=== PATIENT | male | born 1945 | race Caucasian/White ===

== ENCOUNTER 2017-01-09 14:07 | Emergency (ER) | payer MEDICARE, OTHER ==
[2017-01-09 14:43] VITALS: BP 142/77
[2017-01-09] MEDS ORDERED: Tetan/Diph/Pertus SYR(Tdap)* 0.5 ML SYR(BOOSTRIX) use SYR IM ONE (15:27)
[2017-01-09] MEDS ORDERED: Lidocaine 1% MPF* 2 ML VIAL ONE (15:27)
[2017-01-09] MEDS ORDERED: Lidocaine 1% MPF* 2 ML VIAL INJ ONE (15:27)
--- NOTE | 2017-01-09 16:13 | UC ---
Laceration HPI - HPI Summary HPI Summary: Patient presents with laceration of the left index finger, that occurred prior to arrival. He states he was pulling on some tall grass and something cut his finger, he believes it was the grass. He states bleeding is controlled, and he denies any numbness or tingling. He states he is able to bend it without any difficulty. - History Of Current Complaint Chief Complaint: UCLaceration Stated Complaint: FINGER LACERATION Time Seen by Provider: 01/09/17 15:19 Hx Obtained From: Patient Laceration Location: Finger Mechanism Of Injury: Sharp Trauma Severity: Mild Pain Intensity: 0 Pain Scale Used: 0-10 Numeric Aggravating Factors: Nothing - Allergies/Home Medications Allergies/Adverse Reactions: Allergies Allergy/AdvReac Type Severity Reaction Status Date / Time Shellfish Allergy AdvReac Mild GI Upset Verified 01/09/17 14:34 PMH/Surg Hx/FS Hx/Imm Hx Previously Healthy: Yes Cardiovascular History: Hypertension GI/ History: Gastroesophageal Reflux, Other - bph - Surgical History Surgical History: Yes Surgery Procedure, Year, and Place: HERNIA -as a child. CARDIAC CATH W/ STENTING -@ [facility] - PT WILL LOOK FOR HIS CARD - ONLY DO ON 1.5T UNLESS INFO IS PROVIDED - Family History Known Family History: Positive: Cardiac Disease, Hypertension - Social History Occupation: Retired Lives: Alone Alcohol Use: Occasionally Substance Use Type: None Smoking Status (MU): Never Smoked Tobacco Review of Systems Constitutional: Negative Skin: Other - finger laceration Eyes: Negative ENT: Negative Respiratory: Negative Cardiovascular: Negative Gastrointestinal: Negative Genitourinary: Negative Motor: Negative Neurovascular: Negative Musculoskeletal: Negative All Other Systems Reviewed And Are Negative: Yes Physical Exam Triage Information Reviewed: Yes Appearance: Well-Appearing Vital Signs: Initial Vital Signs Temp 97.7 F 01/09/17 14:36 Pulse 71 01/09/17 14:36 Resp 20 01/09/17 14:36 BP 142/77 01/09/17 14:36 Pulse Ox 100 01/09/17 14:36 Vital Signs Reviewed: Yes Eye Exam: Normal ENT Exam: Normal Neck exam: Normal Respiratory Exam: Normal Cardiovascular Exam: Normal Abdominal Exam: Normal Skin Exam: Other - 2.5 cm laceration left index finger, volar aspect at the MIP joint space. ROM intact, Neuro-vasc intact. Laceration Repair - Laceration Repair 1 Description: Linear Laceration Size After Repair: Length (cm) - 2.5 cm Type Injection: Local Anesthesia Used: 1.0% Lido Cleansing Completed Via Routine Prep: Yes Irrigation With Pressure Irrigation Device: Yes Closure Material: Sutures Closure Method: Single Layer Suture Type: Nylon - three sutures Laceration Course/Dx - Course/Dx Course Of Treatment: Patient presents with finger laceration, neuro-vasc intact. time out performed, consent obtained. lidocaine 2 ml at wound site. three interrupted sutures placed to approxiamte the wound. tetanus addressed. discharge with wound care and follow up care provided. - Differential Dx - Laceration/Wound Differental Diagnoses: Laceration Provider Diagnoses: laceration Discharge - Discharge Plan Condition: Stable Disposition: HOME Patient Education Materials: Diphtheria/Acellular Pertussis/Tetanus Vaccine ( By injection), Care For Your Stitches (ED), Finger Laceration (ED) Referrals: Floyd Lei MD [Primary Care Provider] - Additional Instructions: You will need to have your stitches removed in one week.
== END 2017-01-09 15:50 | disposition home or self-care (01) ==
LOC: UCEAST 14:07
DX: S61.211A Laceration without foreign body of left index finger without damage to nail, initial encounter (principal); W45.8XXA Other foreign body or object entering through skin, initial encounter; Y93.9 Activity, unspecified; Y92.9 Unspecified place or not applicable; Y99.9 Unspecified external cause status
CPT/HCPCS: 12001; 90471; 90715; 99211; G0463

== ENCOUNTER 2017-01-16 09:21 | Emergency (ER) | payer MEDICARE, OTHER ==
[2017-01-16 09:36] VITALS: BP 127/69
--- NOTE | 2017-01-16 09:56 | UC ---
HPI Wound/Suture Re-check - HPI Summary HPI Summary: HAD 3 SUTURES PLACED TO LEFT INDEX FINGER 7 DAYS AGO. IS HERE FOR SUTURE REMOVAL. NO PROBLEMS. LAC HEALING WELL. - History Of Current Complaint Chief Complaint: UCLaceration Stated Complaint: SUTURE REMOVAL Time Seen by Provider: 01/16/17 09:55 Hx Obtained From: Patient Onset/Duration: Sudden Onset Severity: Mild Pain Intensity: 0 Pain Scale Used: 0-10 Numeric - Allergies/Home Medications Allergies/Adverse Reactions: Allergies Allergy/AdvReac Type Severity Reaction Status Date / Time Shellfish Allergy AdvReac Mild GI Upset Verified 01/16/17 09:32 PMH/Surg Hx/FS Hx/Imm Hx Cardiovascular History: Cardiac Disease - Surgical History Surgical History: Yes Surgery Procedure, Year, and Place: HERNIA -as a child. CARDIAC CATH W/ STENTING -@ [facility] - PT WILL LOOK FOR HIS CARD - ONLY DO ON 1.5T UNLESS INFO IS PROVIDED - Family History Known Family History: Positive: Cardiac Disease, Hypertension - Social History Alcohol Use: Occasionally Substance Use Type: None Smoking Status (MU): Former Smoker When Did the Patient Quit Smoking/Using Tobacco: 10 years ago Review of Systems Constitutional: Negative Skin: Other - HEALING LACERATION LEFT 2ND FINGER Respiratory: Negative Cardiovascular: Negative Gastrointestinal: Negative All Other Systems Reviewed And Are Negative: Yes Physical Exam Triage Information Reviewed: Yes Appearance: Well-Appearing, No Pain Distress, Well-Nourished Vital Signs: Initial Vital Signs Temp 97.6 F 01/16/17 09:33 Pulse 52 01/16/17 09:33 Resp 16 01/16/17 09:33 BP 127/69 01/16/17 09:33 Pulse Ox 100 01/16/17 09:33 Vital Signs Reviewed: Yes Eyes: Positive: Conjunctiva Clear ENT: Positive: Pharynx normal Neck: Positive: Supple Respiratory: Positive: No respiratory distress, No accessory muscle use Cardiovascular: Positive: Pulses Normal Abdomen Description: Positive: Soft Musculoskeletal: Positive: ROM Intact, No Edema Neurological: Positive: Alert Psychological: Positive: Age Appropriate Behavior Skin: Positive: Other - LACERATION LEFT 2ND FINGER WELL HEALED. SKIN EDGES WELL APPROXIMATED. Negative: rashes Course/Dx - Course Course Of Treatment: 3 SUTURES REMOVED WITHOUT DIFFICULTY - Differential Dx - Laceration/Wound Provider Diagnoses: SUTURE REMOVAL LEFT INDEX FINGER Discharge - Discharge Plan Condition: Stable Disposition: HOME Patient Education Materials: Stitches Removal (ED) Referrals: Floyd Lei MD [Primary Care Provider] - If Needed Additional Instructions: 3 SUTURES REMOVED WITHOUT DIFFICULTY. CONTINUE TO BE CAREFUL WITH YOUR FINGER FOR THE NEXT FEW WEEKS THE SKIN IS STILL HEALING. SEEK FOLLOW-UP IF YOU DEVELOP SPREADING REDNESS OF THE SKIN, PURULENT DRAINAGE, FEVER, INCREASED PAIN OR ANY OTHER CONCERNING SYMPTOMS.
== END 2017-01-16 10:05 | disposition home or self-care (01) ==
LOC: UCEAST 09:21
DX: Z48.02 Encounter for removal of sutures (principal); Z88.0 Allergy status to penicillin

== ENCOUNTER 2021-05-27 05:48 | Observation (INO) ==
[2021-05-27] MEDS ORDERED: Lactated Ringers 1000 ml BAG 1,000 ML IV SCH (06:00)
[2021-05-27] MEDS ORDERED: Buffered Lidocaine 1% SYRIN 1 ml INTRADERM ONE (06:00)
[2021-05-27] MEDS ORDERED: cefTRIAXone 2 GM ADDV.VIAL ONE (06:13)
[2021-05-27] MEDS ORDERED: fentaNYL 100 mcg/2 ml 50 MCG/ML VIAL ONE (07:30)
[2021-05-27] MEDS ORDERED: Midazolam 2 mg/2 ml VIAL 1 mg/ml 2 ml VIAL (2 mg) ONE (07:30)
[2021-05-27] MEDS ORDERED: Lidocaine 2% PF 5 ML VIAL ONE (07:30)
[2021-05-27] MEDS ORDERED: Propofol 10 MG/ML 20 ML BTL ONE ×3 (07:30→08:53)
[2021-05-27] MEDS ORDERED: Ondansetron 4 mg VIAL 2 MG/ML 2 ml VIAL ONE (08:15)
[2021-05-27] MEDS ORDERED: Acetaminophen IV 1 GM/100ML 100 ML IV ONE (08:26)
[2021-05-27] MEDS ORDERED: Naloxone 0.4 mg VIAL 0.4 mg/ml 1 ml VIAL IV PRN (08:41)
[2021-05-27] MEDS ORDERED: Ondansetron 4 mg VIAL 2 MG/ML 2 ml VIAL IV PRN (08:41)
[2021-05-27] MEDS ORDERED: fentaNYL 100 mcg/2 ml 50 MCG/ML VIAL IV PRN (08:41)
[2021-05-27] MEDS ORDERED: Lidocaine 2% JELLY 6 ML TOPICAL ONE (10:11)
[2021-05-27] MEDS ORDERED: oxyCODONE/Acetamin 5/325 mg TAB PO PRN (11:03)
[2021-05-27] MEDS ORDERED: Lidocaine 2% JELLY 6 ML TOPICAL PRN (11:06)
[2021-05-27] MEDS: NS 0.9% 1000 ml BAG 1,000 ML IV SCH ×2 (11:12→20:06)
[2021-05-27] MEDS ORDERED: Lorazepam PYXIS KEY PRN (14:36)
[2021-05-27] MEDS ORDERED: LORazepam 2 mg VIAL 1 ml IV PUSH ONE (14:37)
[2021-05-27] MEDS: Phenol 1.4% Throat Spray 177 ml BTL MT PRN (21:17)
[2021-05-28] MEDS: NS 0.9% 1000 ml BAG 1,000 ML IV SCH (03:58)
[2021-05-28] MEDS ORDERED: Potassium Chlor 10 meq TAB PO SCH (09:00)
[2021-05-28] MEDS: Phenol 1.4% Throat Spray 177 ml BTL MT PRN (09:20)
[2021-05-28 11:33] VITALS: BP 124/65
== END 2021-05-28 11:45 | disposition home or self-care (01) ==
LOC: SSU 05:48 → OR 05:48
PROVIDERS: ADMIT Urology; ATTEND Urology